=== PATIENT | female | born 1935 | race Caucasian/White ===

== ENCOUNTER 2023-04-01 06:58 | Day surgery (SDC) | payer MEDICARE, OTHER ==
[2023-04-01] VITALS (7 sets, daily range): BP systolic 117–141; BP diastolic 50–81; PULSE 54–110; TEMP 98.1
[~2023-04-01] VITALS: Ht 157.5 cm; Wt 50.7 kg
[~2023-04-01 06:58] MED LIST: ARTHRITIS PAIN325 M1 PO; ASPIRIN 32325 MG/TAB PO; ASPIRIN 81M81 MG/TA2 PO; ASPIRIN E.C. 8181 MG PO; BETAPACE 120MG120 MG PO; BETAPACE AF160 MG; BETAPACE160 MG PO; CALCIUM 600600 MG PO; CALCIUM WITH D1 CTB PO; CARAFATE 1GM1 G PO; CEPHALEXIN500 M1 PO; ELIQUIS 5MG PO; EPA FISH OIL1 SGL PO; FISH OIL REGUL300 MG PO; FISH OIL500 MG PO; HCTZ 25MG TAB25 MG PO; LASIX 20MG TABL20 MG PO; LEVOXYL0.075 MG PO; LIPITOR 10MG10 MG PO; LIPITOR 40MG TA40 MG PO; MULTI VITAMINS1 TAB PO; MULTIVITAMIN W/1 TA1 PO; NITROQUICK0.4 MG SL; NITROSTAT0.3 MG SL; NORVASC 10MG10 MG PO; PLAVIX 75MG TAB75 MG PO; PRAVACHOL 20MG20 MG PO; PRINIVIL10 MG PO; PRINIVIL20 MG PO; PRINIVIL40 MG PO; PROTONIX 40MG T40 MG PO; SYNTHROID0.075 MG/T PO; TENORMIN 5050 MG/TAB PO; TYLENOL 325MG325 MG PO; TYLENOL EXTRA500 M1 PO; VISION VITAMINS1 TAB PO; ZESTRIL40 MG PO; [UNRECOGNIZED DRUG - OTHER] PO
[2023-04-01 08:03] LABS: BASO % 0.5 % (0.0-2.0); EOS % 0.6 % (0.0-4.0); GRAN # 5.4 K/mm3 (1.4-6.5); LYMPH # 0.7 K/mm3 (1.2-3.4); LYMPH % 9.8 % (20.0-51.0); MEAN CELL VOLUME 92 fl (80.0-100.0); MEAN CORPUSCULAR HGB CONC 31 g/dl (33.0-37.0); MEAN PLATELET VOLUME 8.8 fl (7.4-10.4); MONO # 0.4 K/mm3 (0.1-0.6); MONO % 6.5 % (1.7-9.3); PLATELET COUNT 236 K/mm3 (130-400); RED BLOOD COUNT 3.25 M/mm3 (4.10-5.30)
[2023-04-01 08:04] LABS: HEMATOCRIT 29.8 % (37.0-47.0); HEMOGLOBIN 9.3 g/dl (12.5-16.0); MEAN CORPUSCULAR HEMOGLOBIN 29 pg (27-31)
[2023-04-01 08:10] LABS: INR 3.6 (0.8-3.0); PROTHROMBIN TIME 37.7 SECONDS (9.7-12.8)
[2023-04-01 08:13] LABS: PARTIAL THROMBOPLASTIN TIME 47.4 SECONDS (26.0-37.0)
[2023-04-01 08:20] LABS: CALCIUM 9.3 mg/dL (8.4-10.2); CREATININE, serum 1.25 mg/dL (0.57-1.11); MAGNESIUM 1.9 mg/dL (1.6-2.6); POTASSIUM 4.4 mmol/L (3.5-4.5)
[2023-04-01 08:41] LABS: THYROID STIMULATING HORMONE 3.834 uIU/mL (0.350-4.940)
[2023-04-01] MEDS ORDERED: CORDARONE200 MG/TAB PO (08:43)
[2023-04-01] MEDS ORDERED: COUMADIN 1MG1 MG/TAB PO (08:51)
[2023-04-01] MEDS ORDERED: COUMADIN 2MG2 MG/TAB PO (08:54)
[2023-04-01] MEDS ORDERED: MAG-OX 400400 MG/TAB PO (08:57)
[2023-04-01] MEDS ORDERED: K-TAB10 PO (08:57)
--- NOTE | 2023-04-01 09:10 | NUR ---
Report received from [facility].Pt awake and alert.
--- NOTE | 2023-04-01 12:10 | NUR ---
Discharge instructions given to pt.pt verbalizes understanding.Pt escorted out via wheelchair by this nurse.
== END 2023-04-01 12:58 ==
LOC: COL.CAR 06:58
PROVIDERS: Internal Medicine Cardiovascular Disease
DX: I48.91 Unspecified atrial fibrillation (principal); F17.210 Nicotine dependence, cigarettes, uncomplicated
CPT/HCPCS: J2704; J7120

== ENCOUNTER 2024-02-09 07:02 | Day surgery (SDC) | payer MEDICARE, OTHER ==
[~2024-02-09] VITALS: Ht 157.6 cm; Wt 58.2 kg
[2024-02-09] VITALS (7 sets, daily range): BP systolic 112–130; BP diastolic 54–66; PULSE 53–87; TEMP 96.7
[~2024-02-09 07:02] MED LIST changes: +CORDARONE200 MG/TAB PO; +COUMADIN 1MG1 MG/TAB PO; +COUMADIN 2MG2 MG/TAB PO; +K-TAB10 PO; +LR 1,000 ML IV SCH; +MAG-OX 400400 MG/TAB PO
[2024-02-09] MEDS ORDERED: NS Flush 10 ML SYRINGE PRN ICA (07:30)
[2024-02-09 07:55] LABS: HEMATOCRIT 34.2 % (37.0-47.0); HEMOGLOBIN 10.3 g/dl (12.5-16.0); MEAN CELL VOLUME 100 fl (80.0-100.0); MEAN CORPUSCULAR HEMOGLOBIN 30 pg (27-31); MEAN CORPUSCULAR HGB CONC 30 g/dl (33.0-37.0); MEAN PLATELET VOLUME 8.7 fl (7.4-10.4); PLATELET COUNT 188 K/mm3 (130-400); RED BLOOD COUNT 3.41 M/mm3 (4.10-5.30); REDCELL DISTRIBUTION WIDTH-CV 16.2 % (11.5-14.5)
[2024-02-09 08:00] LABS: INR 1.1 (0.8-3.0); PROTHROMBIN TIME 11.9 SECONDS (9.7-12.8)
[2024-02-09 08:02] LABS: PARTIAL THROMBOPLASTIN TIME 33.2 SECONDS (26.0-37.0)
[2024-02-09] MEDS ORDERED: ALDACTONE 25MG25 M1 PO (08:09)
[2024-02-09] MEDS ORDERED: TIAZAC180 MG PO (08:11)
[2024-02-09] MEDS ORDERED: LASIX 40MG TABL40 MG PO (08:12)
[2024-02-09] MEDS ORDERED: COLACE 100100 MG/CAP PO (08:14)
[2024-02-09] MEDS ORDERED: FERROUSAL325 MG PO (08:15)
[2024-02-09] MEDS ORDERED: MIRALAX PA17 GM/Dose PO (08:18)
[2024-02-09 08:19] LABS: CALCIUM 9.2 mg/dL (8.4-10.2); CREATININE, serum 1.4 mg/dL (0.57-1.11); POTASSIUM 4.3 mEq/L (3.5-4.5)
[2024-02-09 08:31] LABS: THYROID STIMULATING HORMONE 1.998 uIU/mL (0.350-4.940)
[2024-02-09] MEDS ORDERED: Lidocaine PF 2% (20 MG/ML) 5 ML VIAL ONE (08:41)
[2024-02-09] MEDS ORDERED: NS Flush 10 ML SYRINGE BID ICA SCH (09:00)
[2024-02-09] MEDS ORDERED: Hydrocortisone 1% Cream 30 GM TUBE TP PRN (09:15)
--- NOTE | 2024-02-09 09:22 | NUR ---
Astrid has woken up fine from the propofol, and remains in sinus agustin after cardioversion. She is awake and alert, pwd with reg and unlabored respirations. conversant with daughter in law at bs. bs report and handoff of care to Lyssa PABLO
--- NOTE | 2024-02-09 09:23 | NUR ---
Report received from Krissy Adams.pt is awake,alert, and orientated,respirations even and unlabored.daughter inlaw at bedside.Pt took sip of water with assist of this nurse.Post EKG completed.Will continue to monitor.
--- NOTE | 2024-02-09 11:30 | NUR ---
Dishcharge instructions given to pt.pt verbalizes understanding.Pt escorted out via wheelchair by this nurse.
== END 2024-02-09 13:22 | disposition home or self-care (01) ==
LOC: COL.CAR 07:02
PROVIDERS: Internal Medicine Cardiovascular Disease
DX: I48.0 Paroxysmal atrial fibrillation (principal); I48.92 Unspecified atrial flutter; I25.10 Atherosclerotic heart disease of native coronary artery without angina pectoris; I10 Essential (primary) hypertension; I34.0 Nonrheumatic mitral (valve) insufficiency; I36.1 Nonrheumatic tricuspid (valve) insufficiency; Z95.5 Presence of coronary angioplasty implant and graft; I71.40 Abdominal aortic aneurysm, without rupture, unspecified; I27.20 Pulmonary hypertension, unspecified; Z95.811 Presence of heart assist device; Z87.891 Personal history of nicotine dependence; Z79.899 Other long term (current) drug therapy
CPT/HCPCS: J2704; J7120